=== PATIENT | male | born 1960 | race Caucasian/White ===

== ENCOUNTER 2017-08-11 08:16 | Day surgery (SDC) | payer BC ==
[2017-08-11] MEDS ORDERED: EPINEPHrine 1:10,000 (P-F SYR) 1 MG/10 ML DISP.SYRIN ONE (08:27)
[2017-08-11] MEDS ORDERED: SUCCINYLCHOLINE CHLORIDE 200 MG/10 ML VIAL ONE (08:28)
[2017-08-11] MEDS ORDERED: LIDOCAINE HCL/PF 2% SDV 5ML VIAL ONE (08:28)
[2017-08-11] MEDS ORDERED: PROPOFOL 20 ML ONE ×2 (08:28)
[2017-08-11] MEDS ORDERED: ePHEDrine SULFATE 50 MG/1 ML AMPULE ONE (08:29)
[2017-08-11] MEDS ORDERED: PHENYLEPHRINE HCL 10 MG/1 ML SINGLE DOSE VIAL ONE (08:29)
[2017-08-11 08:51] VITALS: BMI 34.1
[2017-08-11 10:15] VITALS: TEMP 98.3
[2017-08-11 12:11] VITALS: BP 142/83; PULSE 74
--- NOTE | 2017-08-13 11:02 | PATH ---
Surgical Pathology Report Patient Name: VIVI RODRIGUEZ [facility]. Rec. #: [id number] /Age/Gender: 1960 (Age: 57) / M Account: [id number] Location: U-ENDOSCOPY Taken: 08/11/2017 Received: 08/11/2017 Reported: 08/13/2017 Physicians: Andrea Menchaca M.D. 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 GASTRIC POLYP, BIOPSY: GASTRIC FUNDIC GLAND POLYP. IMMUNOSTAIN IS NEGATIVE FOR H. PYLORI ORGANISMS. B. 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 NEGATIVE FOR DYSPLASIA. C. ESOPHAGUS AT @ 36 CM, BIOPSY: COLUMNAR EPITHELIUM WITH CHRONIC INFLAMMATION AND INTESTINAL METAPLASIA, CONSISTENT WITH SERRA'S ESOPHAGUS IN A PROPER CLINICAL SETTING. NEGATIVE FOR DYSPLASIA. D. ESOPHAGUS AT @ 34 CM, BIOPSY: COLUMNAR EPITHELIUM WITH CHRONIC INFLAMMATION AND INTESTINAL METAPLASIA, CONSISTENT WITH SERRA'S ESOPHAGUS IN A PROPER CLINICAL SETTING. NEGATIVE FOR DYSPLASIA. E. ESOPHAGUS AT @ 32 CM, BIOPSY: SQUAMOUS AND COLUMNAR EPITHELIUM WITH CHRONIC INFLAMMATION AND INTESTINAL METAPLASIA, CONSISTENT WITH SERRA'S ESOPHAGUS IN A PROPER CLINICAL SETTING. NEGATIVE FOR DYSPLASIA. F. RIGHT COLON POLYP, POLYPECTOMY: TUBULAR ADENOMA. G. SIGMOID COLON POLYPS, POLYPECTOMY: HYPERPLASTIC POLYP, MULTIPLE FRAGMENTS. H. RECTOSIGMOID POLYP, POLYPECTOMY: HYPERPLASTIC POLYP. I. RECTAL POLYP, POLYPECTOMY: HYPERPLASTIC POLYP. J. ANAL POLYP, POLYPECTOMY: HYPERPLASTIC POLYP. Electronically Signed Elif Mcmillan M.D. Gross Description A. Received in formalin, labeled "biopsy gastric polyps" are 3 cruz, irregular portions of soft tissue ranging from 0.1-0.4 cm. in greatest dimension. The specimens are submitted in toto in one cassette. B. Received in formalin, labeled " biopsy esophagus at 38 cm" are 3 cruz, irregular portions of soft tissue ranging from 0.1-0.3 cm. in greatest dimension. The specimens are submitted in toto in one cassette. C. Received in formalin, labeled "biopsy esophagus at 36 cm" are 2 cruz, irregular portions of soft tissue measuring 0.3 and 0.4 cm. in greatest dimension. The specimens are submitted in toto in one cassette. D. Received in formalin, labeled " biopsy esophagus at 34 cm" are 3 curz, irregular portions of soft tissue ranging from 0.2-0.7 cm. in greatest dimension. The specimens are submitted in toto in one cassette. E. Received in formalin, labeled " biopsy esophagus at 32 cm" are 4 cruz, irregular portions of soft tissue ranging from 0.2-0.4 cm. in greatest dimension. The specimens are submitted in toto in one cassette. F. Received in formalin, labeled " polyp right colon" are 4 cruz, irregular portions of soft tissue ranging from 0.2-0.3 cm. in greatest dimension. The specimens are submitted in toto in one cassette. G. Received in formalin, labeled " sigmoid colon polyps" are 6 cruz, polypoid portions of soft tissue ranging from 0.4-1.0 cm. in greatest dimension. The specimens are submitted in toto in one cassette. H. he in formalin labeled "rectosigmoid colon polyp," is a 1.0 cm in greatest dimension cruz, polypoid portion of soft tissue. The specimen is submitted in toto in one cassette. I. Received in formalin, labeled " rectal polyp" are 6 cruz, irregular portions of soft tissue ranging from 0.4-0.6 cm. in greatest dimension. The specimens are submitted in toto in one cassette. J. Received in formalin, labeled " anal polyp" are 2 cruz, irregular portions of soft tissue averaging 0.3 cm. in greatest dimension. The specimens are submitted in toto in one cassette. 08/11/2017 saudi08/11/2017
== END 2017-08-11 11:10 | disposition home or self-care (01) ==
LOC: JASU-ENDO 08:16
PROVIDERS: ATTEND Internal Medicine Gastroenterology
PROC: 0DBL8ZX Excision of Transverse Colon, Via Natural or Artificial Opening Endoscopic, Diagnostic (ICD-10-PCS; 2017-08-11)
PROC: 0DBN8ZX Excision of Sigmoid Colon, Via Natural or Artificial Opening Endoscopic, Diagnostic (ICD-10-PCS; 2017-08-11)
PROC: 0DBP8ZX Excision of Rectum, Via Natural or Artificial Opening Endoscopic, Diagnostic (ICD-10-PCS; 2017-08-11)
PROC: 0DBM8ZX Excision of Descending Colon, Via Natural or Artificial Opening Endoscopic, Diagnostic (ICD-10-PCS; 2017-08-11)
PROC: 0DBN8ZX Excision of Sigmoid Colon, Via Natural or Artificial Opening Endoscopic, Diagnostic (ICD-10-PCS; 2017-08-11)
PROC: 0DB58ZX Excision of Esophagus, Via Natural or Artificial Opening Endoscopic, Diagnostic (ICD-10-PCS; 2017-08-11)
PROC: 0DB68ZX Excision of Stomach, Via Natural or Artificial Opening Endoscopic, Diagnostic (ICD-10-PCS; 2017-08-11)
PROC: 0DBK8ZX Excision of Ascending Colon, Via Natural or Artificial Opening Endoscopic, Diagnostic (ICD-10-PCS; principal; 2017-08-11 08:00)
DX: Z12.11 Encounter for screening for malignant neoplasm of colon (principal); K22.70 Barrett's esophagus without dysplasia; D12.2 Benign neoplasm of ascending colon; D12.5 Benign neoplasm of sigmoid colon; D12.7 Benign neoplasm of rectosigmoid junction; D12.8 Benign neoplasm of rectum; R63.5 Abnormal weight gain; I10 Essential (primary) hypertension; E11.9 Type 2 diabetes mellitus without complications; Z79.4 Long term (current) use of insulin; I50.9 Heart failure, unspecified
CPT/HCPCS: 82962; 88305-TC

== ENCOUNTER 2020-07-18 18:23 | Inpatient (IN) | payer BC ==
[2020-07-18] MEDS ORDERED: FUROSEMIDE 40 MG/4 ML INJECTABLE VIAL IVPUSH ONE (20:32)
[2020-07-18 20:57] LABS: EPI CELLS 1 /uL (0-25.1); HYALINE CASTS 1 /uL (0-3.1); PH,URINE 5.5 (5.0-8.0); URINE APPEARANCE CLEAR; URINE BACTERIA 166 /uL (0-1359); URINE BILIRUBIN NEGATIVE (NEGATIVE); URINE COLOR YELLOW; URINE GLUCOSE (UA) NEGATIVE (NEGATIVE); URINE KETONE NEGATIVE (NEGATIVE); URINE LEUK ESTERASE NEGATIVE (NEGATIVE); URINE NITRITE NEGATIVE (NEGATIVE); URINE PROTEIN 3+ (NEGATIVE); URINE RBC 19 /uL (0-23.9); URINE UROBILINOGEN 0.2 mg/dL (0.2-1.0)
[2020-07-18] MEDS ORDERED: FUROSEMIDE 40 MG/4 ML INJECTABLE VIAL ONE (21:49)
[2020-07-18 22:16] LABS: BASO % 0.7 % (0-2.0); EOS % 1.8 % (0-4.5); HEMATOCRIT 29.7 % (35.4-49); LYMPH % 12.6 % (8-40); MCH 26.6 pg (25.7-33.7); MCHC 33.6 g/dl (32.0-35.9); MEAN CELL VOLUME 79.2 fl (80-96); MEAN PLT VOLUME 8.1 fl (7.5-11.1); MONO % 8.2 % (3.8-10.2); NEUT % 76.7 % (42.8-82.8); PLATELET COUNT 167 K/MM3 (134-434); RBC 3.75 M/mm3 (4.00-5.60); RDW 16.4 % (11.9-15.9); WHITE BLOOD COUNT 8.5 K/mm3 (4.0-10.0)
[2020-07-18 22:24] LABS: INR 1.15 (0.83-1.09); PROTHROMBIN TIME (PATIENT) 13.9 SEC (9.7-13.0)
[2020-07-18 22:27] LABS: ACTIVATED PTT 33.4 SECONDS (25.2-36.5)
[2020-07-18 22:30] LABS: CALCIUM 8.2 mg/dL (8.5-10.1)
[2020-07-18 22:31] LABS: ALBUMIN 2.8 g/dl (3.4-5.0); BLOOD UREA NITROGEN 41.5 mg/dL (7-18); MAGNESIUM 2.1 mg/dL (1.8-2.4)
[2020-07-18 22:34] LABS: CREATININE 3.5 mg/dL (0.55-1.3); PHOSPHOROUS 4.4 mg/dL (2.5-4.9)
[2020-07-18 22:35] LABS: BILIRUBIN,TOTAL 0.3 mg/dL (0.2-1)
[2020-07-18 22:39] LABS: N-TERMINAL BNP 7469.8 pg/ml (5-125)
[2020-07-19] MEDS: CARVEDILOL 25 MG TABLET (FP) PO SCH ×3 (03:03→22:44)
[2020-07-19] MEDS: hydrALAZINE HCL 25 MG TABLET (FP) PO SCH ×3 (03:03→22:44)
[2020-07-19 04:12] VITALS: BMI 34.7
[2020-07-19] MEDS ORDERED: PNEUMOC 13-VAL CONJ-DIP CRM/PF 0.5 ML DISP.SYRIN IM ONE (04:12)
[2020-07-19] MEDS: INSULIN SLIDING SCALE (NOVOLOG) 1 VIAL SQ SCH ×4 (06:38→22:44)
[2020-07-19] MEDS: HEPARIN NA (PORCINE) 5,000 UNITS/ML 1ML VIAL SQ SCH ×3 (06:39→22:43)
[2020-07-19 08:50] LABS: HEMATOCRIT 28.1 % (35.4-49); HEMOGLOBIN 9.3 GM/dL (11.7-16.9); MCH 26.5 pg (25.7-33.7); MCHC 33.1 g/dl (32.0-35.9); PLATELET COUNT 151 K/MM3 (134-434); RBC 3.51 M/mm3 (4.00-5.60); RDW 16.6 % (11.9-15.9); WHITE BLOOD COUNT 6.4 K/mm3 (4.0-10.0)
[2020-07-19 09:08] LABS: ALBUMIN 2.6 g/dl (3.4-5.0); BLOOD UREA NITROGEN 38.5 mg/dL (7-18); CALCIUM 7.9 mg/dL (8.5-10.1)
[2020-07-19 09:10] LABS: MAGNESIUM 2.1 mg/dL (1.8-2.4)
[2020-07-19 09:11] LABS: CREATININE 3.5 mg/dL (0.55-1.3)
[2020-07-19 09:12] LABS: BILIRUBIN,TOTAL 0.5 mg/dL (0.2-1); TOT PROT 5.5 g/dl (6.4-8.2)
[2020-07-19] MEDS: ASPIRIN 81 MG CHEWABLE TABLETS PO SCH (09:36)
[2020-07-19] MEDS: FUROSEMIDE 40 MG/4 ML INJECTABLE VIAL IVPUSH SCH (09:36)
[2020-07-19] MEDS ORDERED: POTASSIUM CHLORIDE TABS 20 MEQ TABLET.ER (FP) PO ONE (09:43)
[2020-07-19] MEDS ORDERED: PNEUMOCOCCAL 23 VACCINE 0.5 ML VIAL IM ONE (10:00)
[2020-07-19 19:05] LABS: EPI CELLS 3 /uL (0-25.1); HYALINE CASTS 1 /uL (0-3.1); URINE APPEARANCE CLEAR; URINE BACTERIA 195 /uL (0-1359); URINE BILIRUBIN NEGATIVE (NEGATIVE); URINE COLOR YELLOW; URINE GLUCOSE (UA) TRACE (NEGATIVE); URINE KETONE NEGATIVE (NEGATIVE); URINE LEUK ESTERASE NEGATIVE (NEGATIVE); URINE NITRITE NEGATIVE (NEGATIVE); URINE PROTEIN 4+ (NEGATIVE); URINE RBC 13 /uL (0-23.9); URINE UROBILINOGEN 0.2 mg/dL (0.2-1.0)
[2020-07-19 19:37] LABS: URINE WBC 214.7 /uL (0-25.8)
[2020-07-19] MEDS: ATORVASTATIN CA 20 MG TABLET (FP) PO SCH (22:44)
[2020-07-20] MEDS: INSULIN SLIDING SCALE (NOVOLOG) 1 VIAL SQ SCH ×4 (06:44→21:40)
[2020-07-20] MEDS: HEPARIN NA (PORCINE) 5,000 UNITS/ML 1ML VIAL SQ SCH ×3 (07:03→21:39)
[2020-07-20 08:07] LABS: IGA IMMUNOGLOBULIN 228 mg/dL (61-437); IGG QN IMMUNOGLOBULIN 750 mg/dL (603-1613); IGM QN SERUM 13 mg/dL (20-172)
[2020-07-20] MEDS ORDERED: PT OWN MED DRAWER 7, Y5N ONE (08:34)
[2020-07-20 09:17] LABS: HEMATOCRIT 27.5 % (35.4-49); HEMOGLOBIN 8.9 GM/dL (11.7-16.9); MCH 26.3 pg (25.7-33.7); MCHC 32.3 g/dl (32.0-35.9); MEAN CELL VOLUME 81.3 fl (80-96); MEAN PLT VOLUME 8.7 fl (7.5-11.1); PLATELET COUNT 134 K/MM3 (134-434); RBC 3.38 M/mm3 (4.00-5.60); RDW 16.9 % (11.9-15.9); WHITE BLOOD COUNT 5.6 K/mm3 (4.0-10.0)
[2020-07-20 09:20] LABS: ALBUMIN 2.5 g/dl (3.4-5.0)
[2020-07-20 09:21] LABS: CALCIUM 8.2 mg/dL (8.5-10.1)
[2020-07-20 09:22] LABS: BLOOD UREA NITROGEN 47.7 mg/dL (7-18); MAGNESIUM 2.3 mg/dL (1.8-2.4)
[2020-07-20 09:23] LABS: CREATININE 3.7 mg/dL (0.55-1.3)
[2020-07-20 09:25] LABS: BILIRUBIN,TOTAL 0.4 mg/dL (0.2-1); TOT PROT 5.4 g/dl (6.4-8.2)
[2020-07-20] MEDS: hydrALAZINE HCL 25 MG TABLET (FP) PO SCH ×2 (11:03→21:39)
[2020-07-20] MEDS: ASPIRIN 81 MG CHEWABLE TABLETS PO SCH (11:04)
[2020-07-20] MEDS: FUROSEMIDE 40 MG/4 ML INJECTABLE VIAL IVPUSH SCH (11:04)
[2020-07-20] MEDS: CARVEDILOL 25 MG TABLET (FP) PO SCH ×2 (11:04→21:39)
[2020-07-20] MEDS: ATORVASTATIN CA 20 MG TABLET (FP) PO SCH (21:39)
[2020-07-21] MEDS: HEPARIN NA (PORCINE) 5,000 UNITS/ML 1ML VIAL SQ SCH ×3 (06:12→21:18)
[2020-07-21] MEDS: INSULIN SLIDING SCALE (NOVOLOG) 1 VIAL SQ SCH ×4 (06:14→21:19)
[2020-07-21] MEDS: CARVEDILOL 25 MG TABLET (FP) PO SCH ×2 (10:31→21:18)
[2020-07-21] MEDS: hydrALAZINE HCL 25 MG TABLET (FP) PO SCH ×2 (10:31→21:18)
[2020-07-21] MEDS: FUROSEMIDE 40 MG/4 ML INJECTABLE VIAL IVPUSH SCH (11:15)
[2020-07-21 16:39] LABS: ALBUMIN 2.5 g/dl (3.4-5.0); BLOOD UREA NITROGEN 46.6 mg/dL (7-18); CALCIUM 7.9 mg/dL (8.5-10.1)
[2020-07-21 16:43] LABS: CREATININE 3.5 mg/dL (0.55-1.3)
[2020-07-21 16:44] LABS: BILIRUBIN,TOTAL 0.3 mg/dL (0.2-1); TOT PROT 5.4 g/dl (6.4-8.2)
[2020-07-21 18:06] LABS: FREE KAPPA,SERUM 106.7 mg/L (3.3-19.4)
[2020-07-21] MEDS: ATORVASTATIN CA 20 MG TABLET (FP) PO SCH (21:18)
[2020-07-22] MEDS: HEPARIN NA (PORCINE) 5,000 UNITS/ML 1ML VIAL SQ SCH ×3 (06:32→21:33)
[2020-07-22] MEDS: INSULIN SLIDING SCALE (NOVOLOG) 1 VIAL SQ SCH ×4 (06:32→21:37)
[2020-07-22 08:23] LABS: BASO % 0.8 % (0-2.0); EOS % 2.3 % (0-4.5); LYMPH % 14.7 % (8-40); MCHC 32.1 g/dl (32.0-35.9); MEAN CELL VOLUME 81.2 fl (80-96); MEAN PLT VOLUME 8.5 fl (7.5-11.1); MONO % 9.3 % (3.8-10.2); NEUT % 72.9 % (42.8-82.8); PLATELET COUNT 128 K/MM3 (134-434); RBC 3.44 M/mm3 (4.00-5.60); RDW 16.6 % (11.9-15.9); WHITE BLOOD COUNT 5.3 K/mm3 (4.0-10.0)
[2020-07-22 08:39] LABS: CALCIUM 7.8 mg/dL (8.5-10.1)
[2020-07-22 08:40] LABS: ALBUMIN 2.5 g/dl (3.4-5.0); BLOOD UREA NITROGEN 45.8 mg/dL (7-18); MAGNESIUM 2.2 mg/dL (1.8-2.4)
[2020-07-22 08:43] LABS: CREATININE 3.5 mg/dL (0.55-1.3)
[2020-07-22 08:45] LABS: BILIRUBIN,TOTAL 0.8 mg/dL (0.2-1); TOT PROT 5.4 g/dl (6.4-8.2)
[2020-07-22] MEDS: CARVEDILOL 25 MG TABLET (FP) PO SCH ×2 (10:13→21:33)
[2020-07-22] MEDS: hydrALAZINE HCL 25 MG TABLET (FP) PO SCH ×2 (10:13→21:32)
[2020-07-22] MEDS: FUROSEMIDE 40 MG/4 ML INJECTABLE VIAL IVPUSH SCH (10:13)
[2020-07-22] MEDS: ATORVASTATIN CA 20 MG TABLET (FP) PO SCH (21:33)
[2020-07-23] MEDS: HEPARIN NA (PORCINE) 5,000 UNITS/ML 1ML VIAL SQ SCH ×3 (05:50→22:06)
[2020-07-23] MEDS: INSULIN SLIDING SCALE (NOVOLOG) 1 VIAL SQ SCH ×4 (06:01→22:17)
[2020-07-23 09:28] LABS: BASO % 1.1 % (0-2.0); EOS % 2.1 % (0-4.5); HEMATOCRIT 28.1 % (35.4-49); HEMOGLOBIN 9.3 GM/dL (11.7-16.9); LYMPH % 14.7 % (8-40); MCH 26.4 pg (25.7-33.7); MEAN PLT VOLUME 8.6 fl (7.5-11.1); MONO % 10.5 % (3.8-10.2); NEUT % 71.6 % (42.8-82.8); PLATELET COUNT 126 K/MM3 (134-434); RBC 3.51 M/mm3 (4.00-5.60); RDW 16.7 % (11.9-15.9); WHITE BLOOD COUNT 5.1 K/mm3 (4.0-10.0)
[2020-07-23] MEDS ORDERED: FUROSEMIDE 40 MG/4 ML INJECTABLE VIAL IVPUSH SCH (10:00)
[2020-07-23] MEDS: hydrALAZINE HCL 25 MG TABLET (FP) PO SCH ×2 (10:02→22:04)
[2020-07-23] MEDS: FUROSEMIDE 40 MG TABLET (FP) PO SCH (10:02)
[2020-07-23] MEDS: CARVEDILOL 25 MG TABLET (FP) PO SCH ×2 (10:02→22:04)
[2020-07-23 10:21] LABS: ALBUMIN 2.6 g/dl (3.4-5.0); BILIRUBIN,TOTAL 0.4 mg/dL (0.2-1); CREATININE 3.4 mg/dL (0.55-1.3); MAGNESIUM 2.2 mg/dL (1.8-2.4); TOT PROT 5.6 g/dl (6.4-8.2)
[2020-07-23] MEDS ORDERED: INSULIN (NOVOLOG) ASPART 100 UNITS/ML 10ML VIAL ONE ×2 (10:43→21:17)
[2020-07-23 11:07] LABS: ANTIGLOMERULAR BASEMENT MEN.AB 2 units (0-20)
[2020-07-23] MEDS: ATORVASTATIN CA 20 MG TABLET (FP) PO SCH (22:06)
[2020-07-24] MEDS: HEPARIN NA (PORCINE) 5,000 UNITS/ML 1ML VIAL SQ SCH ×2 (06:06→14:16)
[2020-07-24] MEDS: INSULIN SLIDING SCALE (NOVOLOG) 1 VIAL SQ SCH (06:13)
[2020-07-24] MEDS: FUROSEMIDE 40 MG TABLET (FP) PO SCH (09:46)
[2020-07-24] MEDS: hydrALAZINE HCL 25 MG TABLET (FP) PO SCH (09:46)
[2020-07-24] MEDS: CARVEDILOL 25 MG TABLET (FP) PO SCH (09:46)
[2020-07-24 10:57] LABS: BASO % 0.8 % (0-2.0); HEMATOCRIT 29.8 % (35.4-49); HEMOGLOBIN 9.7 GM/dL (11.7-16.9); LYMPH % 12.2 % (8-40); MCH 26.1 pg (25.7-33.7); MCHC 32.7 g/dl (32.0-35.9); MEAN CELL VOLUME 79.8 fl (80-96); MONO % 8.9 % (3.8-10.2); NEUT % 76.1 % (42.8-82.8); PLATELET COUNT 137 K/MM3 (134-434); RBC 3.73 M/mm3 (4.00-5.60); RDW 16.5 % (11.9-15.9)
[2020-07-24 11:13] LABS: ALBUMIN 2.6 g/dl (3.4-5.0); BLOOD UREA NITROGEN 36.5 mg/dL (7-18)
[2020-07-24 11:16] LABS: CREATININE 3.2 mg/dL (0.55-1.3)
[2020-07-24 11:18] LABS: TOT PROT 5.6 g/dl (6.4-8.2)
[2020-07-24 11:21] LABS: BILIRUBIN,TOTAL 1.8 mg/dL (0.2-1)
[2020-07-24] MEDS ORDERED: POTASSIUM CHLORIDE ORAL LIQUID 20 MEQ/15 ML PO ONE (13:45)
[2020-07-24 14:05] VITALS: BP 144/82; PULSE 80; TEMP 98.5
[2020-07-24] MEDS ORDERED: amLODIPine BESYLATE 5 MG TABLET (FP) PO SCH (14:30)
[2020-07-24 16:08] LABS: ATYPICAL pANCA <1:20 titer (Neg:<1:20); C-ANCA <1:20 titer (Neg:<1:20)
[2020-07-24 16:08] LABS: TOTAL PROTEIN, URINE 841.2 mg/dL (Not Estab.)
[2020-07-27 08:29] LABS: KAPPA/LAMBDA RATIO, UR 5.58
[2020-07-27 08:49] LABS: KAPPA/LAMBDA RATIO, UR 5.35
[2020-07-27 08:51] LABS: FREE KAP CHN UR 246.74; KAPPA LAMBDA RATIO URIN 5.61
== END 2020-07-24 18:46 | disposition home or self-care (01) | DRG 291 ==
LOC: JER 18:23 → JERBED 21:20 → J4W 07-19 02:45 → J6S 07-22 15:17
PROVIDERS: ADMIT Hospitalist; ATTEND Nurse Practitioner Family
PROC: 0HB7XZX Excision of Abdomen Skin, External Approach, Diagnostic (ICD-10-PCS; principal; 2020-07-23)
DX: I13.0 Hypertensive heart and chronic kidney disease with heart failure and stage 1 through stage 4 chronic kidney disease, or unspecified chronic kidney disease (principal); I50.23 Acute on chronic systolic (congestive) heart failure; N17.9 Acute kidney failure, unspecified; E87.0 Hyperosmolality and hypernatremia; E85.9 Amyloidosis, unspecified; E11.22 Type 2 diabetes mellitus with diabetic chronic kidney disease; E78.5 Hyperlipidemia, unspecified; I42.5 Other restrictive cardiomyopathy; D64.9 Anemia, unspecified; K21.9 Gastro-esophageal reflux disease without esophagitis; E66.9 Obesity, unspecified; Z68.34 Body mass index [BMI] 34.0-34.9, adult; D69.6 Thrombocytopenia, unspecified; N18.30 Chronic kidney disease, stage 3 unspecified; I25.10 Atherosclerotic heart disease of native coronary artery without angina pectoris; Z91.14 Patient's other noncompliance with medication regimen
CPT/HCPCS: 36415; 71046-TC-FY; 76775-TC; 76856-TC; 80053; 81003; 82024; 82530; 82533; 82570; 82728; 82784; 82962; 83516; 83520; 83540; 83550; 83735; 83880; 83883; 83930; 83935; 84100; 84155; 84156; 84157; 84165; 84300; 84466; 84484; 84540; 85025; 85027; 85045; 85610; 85730; 86038; 86225; 86256; 86769; 87086; 87186; 93005; 93010; 93306-TC; 99285-25; C9803; J1644; U0003; U0005

== ENCOUNTER 2020-07-30 17:10 | Emergency (ER) | payer BC ==
[2020-07-30 17:35] VITALS: BP 150/90; PULSE 76; TEMP 99; BMI 34.2
== END 2020-07-30 17:50 | disposition home or self-care (01) ==
LOC: FER 17:10
DX: Z11.52 Encounter for screening for COVID-19 (principal); Z48.02 Encounter for removal of sutures
CPT/HCPCS: 99283-25; C9803; U0003; U0005

== ENCOUNTER 2020-09-18 05:07 | Day surgery (SDC) | payer BC ==
[2020-09-17 12:02] VITALS: BMI 35.0
[2020-09-18] MEDS ORDERED: SODIUM CHLORIDE 500 ML IV ONE (11:05)
[2020-09-18] MEDS ORDERED: MIDAZOLAM HCL 2 MG/2 ML SINGLE DOSE VIAL IVPUSH ONE ×2 (11:15→11:30)
[2020-09-18 18:10] VITALS: BP 135/70; PULSE 85; TEMP 98.2
== END 2020-09-18 16:00 | disposition home or self-care (01) ==
LOC: JRADIR 05:07
PROVIDERS: ATTEND Internal Medicine
PROC: 0TB03ZX Excision of Right Kidney, Percutaneous Approach, Diagnostic (ICD-10-PCS; principal; 2020-09-18)
DX: N18.9 Chronic kidney disease, unspecified (principal)
CPT/HCPCS: 50200; 88300-TC; 88329

== ENCOUNTER 2021-04-04 04:18 | Day surgery (SDC) | payer BC ==
[2021-04-03 09:49] VITALS: BMI 30.2
[2021-04-04 10:08] VITALS: BP 126/65; PULSE 80; TEMP 98.5
== END 2021-04-04 11:30 | disposition home or self-care (01) ==
LOC: JASU-ENDO 04:18
PROVIDERS: ATTEND Internal Medicine Gastroenterology
PROC: 0DBL8ZX Excision of Transverse Colon, Via Natural or Artificial Opening Endoscopic, Diagnostic (ICD-10-PCS; 2021-04-04)
PROC: 0DBN8ZX Excision of Sigmoid Colon, Via Natural or Artificial Opening Endoscopic, Diagnostic (ICD-10-PCS; 2021-04-04)
PROC: 0DB38ZX Excision of Lower Esophagus, Via Natural or Artificial Opening Endoscopic, Diagnostic (ICD-10-PCS; 2021-04-04)
PROC: 0DB68ZX Excision of Stomach, Via Natural or Artificial Opening Endoscopic, Diagnostic (ICD-10-PCS; 2021-04-04)
PROC: 0DBF8ZX Excision of Right Large Intestine, Via Natural or Artificial Opening Endoscopic, Diagnostic (ICD-10-PCS; principal; 2021-04-04 08:30)
DX: D50.9 Iron deficiency anemia, unspecified (principal); K29.50 Unspecified chronic gastritis without bleeding; D12.2 Benign neoplasm of ascending colon; D12.5 Benign neoplasm of sigmoid colon; D12.3 Benign neoplasm of transverse colon; K20.80 Other esophagitis without bleeding
CPT/HCPCS: 82962; 88305-TC; 88341-TC; 88342-TC

== ENCOUNTER 2021-08-12 14:04 | Emergency (ER) | payer BC ==
[2021-08-12 14:43] VITALS: BP 147/72; PULSE 84; TEMP 98; BMI 32.3
[2021-08-12 21:17] LABS: BASO % 0.9 % (0-2.0); EOS % 2.8 % (0-4.5); HEMATOCRIT 31.9 % (35.4-49); HEMOGLOBIN 10.3 GM/dL (11.7-16.9); LYMPH % 8.5 % (8-40); MCH 27.2 pg (25.7-33.7); MCHC 32.3 g/dl (32.0-35.9); MEAN CELL VOLUME 84.2 fl (80-96); MEAN PLT VOLUME 7.1 fl (7.5-11.1); MONO % 10.9 % (3.8-10.2); NEUT % 76.9 % (42.8-82.8); PLATELET COUNT 140 10^3/uL (134-434); RBC 3.79 M/mm3 (4.00-5.60); RDW 18.3 % (11.9-15.9); WHITE BLOOD COUNT 6.2 K/mm3 (4.0-10.0)
[2021-08-12 21:23] LABS: INR 1.33 (0.83-1.09); PROTHROMBIN TIME (PATIENT) 15.3 SEC (9.7-13.0)
[2021-08-12 21:32] LABS: BLOOD UREA NITROGEN 57.2 mg/dL (7-18); CALCIUM 8.3 mg/dL (8.5-10.1)
[2021-08-12 21:36] LABS: CREATININE 5.5 mg/dL (0.55-1.3)
[2021-08-12 21:38] LABS: BILIRUBIN,TOTAL 0.5 mg/dL (0.2-1); TOT PROT 6.2 g/dl (6.4-8.2)
[2021-08-12 21:56] LABS: N-TERMINAL BNP 24109.4 pg/ml (5-125)
== END 2021-08-13 00:17 | disposition home or self-care (01) ==
LOC: JER 14:04
DX: K62.5 Hemorrhage of anus and rectum (principal); R60.0 Localized edema; N18.5 Chronic kidney disease, stage 5
CPT/HCPCS: 36415; 71045-TC-FY; 80053; 82272; 83605; 83880; 84484; 85025; 85610; 93005; 93010; 99285-25